=== PATIENT | female | born 1970 | race Caucasian/White ===

== ENCOUNTER 2018-06-06 19:01 | Inpatient (IN) | payer BC ==
[~2018-06-06] VITALS: Ht 157.5 cm; Wt 52.6 kg
--- NOTE | 2018-06-06 19:15 | NUR ---
TO BED 10 AMBULATORY C/O NAUSEA/VOMITING X2 DAYS. PT AAOX4 NO ACUTE DISTRESS NOTED, RESP EVEN AND UNLABORED. PLACE PT ON CARDIAC MONITORING, CONTINUOUS POX. ER MD AT BEDSIDE TO EVAL PT WITH ORDERS RECEIVED. WILL CARRY OUT ORDERS.
[2018-06-06] MEDS ORDERED: ONDANSETRON HCL/PF 4 MG/2 ML VIAL ONE (19:20)
--- NOTE | 2018-06-06 19:20 | NUR ---
STARTED SL 18G TO [facility], BLOOD DRAWN AND SENT TO LAB.
[2018-06-06 19:29] LABS: BASOPHILS # (AUTO) 0.1 /CMM (0.0-0.2); BASOPHILS % (AUTO) 0.4 % (0.0-2.0); HEMATOCRIT 50 % (33-45); HEMOGLOBIN 16.9 g/dL (11.5-14.8); LYMPHOCYTES # (AUTO) 0.5 /CMM (0.8-4.8); LYMPHOCYTES % (AUTO) 2.2 % (20.0-44.0); MEAN CORPUSCULAR HGB CONC 34 g/dl (31.0-36.0); MEAN CORPUSCULAR VOLUME 102 fL (82-100); MONOCYTES # (AUTO) 1.6 /CMM (0.1-1.30); MONOCYTES % (AUTO) 6.7 % (2.0-12.0); NEUTROPHILS # (AUTO) 21.3 /CMM (1.8-8.9); NEUTROPHILS % (AUTO) 90.7 % (43.0-81.0); PLATELET COUNT (AUTO) 198 /CMM (150-450); RED BLOOD CELL COUNT(AUTO) 4.91 MIL/uL (4.0-5.2); WHITE BLOOD COUNT (AUTO) 23.4 K/uL (4.3-11.0)
[2018-06-06] MEDS ORDERED: IV NS 0.9% 1,000 ML BAG IV ONE ×2 (19:30)
[2018-06-06] MEDS ORDERED: ONDANSETRON HCL/PF 4 MG/2 ML VIAL IVP ONE (19:30)
--- NOTE | 2018-06-06 19:31 | NUR ---
PT MEDICATED BY RN PER ER MD ORDER.
[2018-06-06 19:36] LABS: CALCIUM, SERUM 11.2 mg/dL (8.5-10.1); CREATININE 2.2 mg/dL (0.6-1.3); POTASSIUM 4.9 mmol/L (3.5-5.1)
[2018-06-06 19:42] LABS: ALBUMIN 5.9 g/dL (3.4-5.0); BILIRUBIN,DIRECT 0.1 mg/dL (0.0-0.2); BILIRUBIN,TOTAL 0.6 mg/dL (0.2-1.0); TOTAL PROTEIN, SERUM 10.5 g/dL (6.4-8.2)
--- NOTE | 2018-06-06 19:46 | NUR ---
PT TRANSPORTED TO RADIOLOGY FOR CT.
[2018-06-06] MEDS ORDERED: PIPERACILLIN /TAZOBACTAM 3.375 G in IV D5W 50 ML IV ONE (20:00)
[2018-06-06] MEDS ORDERED: PIPERACILLIN /TAZOBACTAM 3.375 G VIAL IV ONE (20:19)
[2018-06-06] MEDS ORDERED: MORPHINE SULFATE INJ 4 MG/ML DISP.SYRIN ONE (21:06)
[2018-06-06] MEDS ORDERED: PANTOPRAZOLE 40 MG VIAL ONE (21:06)
--- NOTE | 2018-06-06 21:13 | NUR ---
PT MEDICATED BY RN PER ER MD ORDER.
[2018-06-06] MEDS ORDERED: PANTOPRAZOLE 40 MG VIAL IV ONE (21:30)
[2018-06-06] MEDS ORDERED: MORPHINE SULFATE INJ 2 MG/ML DISP.SYRIN IV ONE (21:30)
[2018-06-06 21:59] LABS: APPEARANCE,URINE Cloudy (CLEAR); BILIRUBIN,URINE LARGE (NEGATIVE); BLOOD, URINE Moderate Ery/uL (NEGATIVE); COLOR,URINE Yellow (YELLOW); KETONES,URINE 80 (NEGATIVE); LEUKOCYTE ESTERASE ,URINE Negative (NEGATIVE); NITRITE, URINE Negative (NEGATIVE); PH,URINE 5.5 (5.0-8.0); PROTEIN,URINE >=300 mg/dl (NEGATIVE); UGLUCOSE Negative (NEGATIVE); UROBILINOGEN,URINE 0.2 EU/dL (0.2)
--- NOTE | 2018-06-06 22:06 | NUR ---
BED ASSIGNMENT 208-2
[2018-06-06 22:14] LABS: BACTERIA,URINE None seen /HPF (None Seen); SQUAMOUS EPITHELIAL CELL,UR Few /HPF (None Seen); WBC,URINE 0-2 /HPF (0-3)
--- NOTE | 2018-06-06 22:28 | NUR ---
REPORT CALLED TO M/S SUREKHA SCHUSTER.
--- NOTE | 2018-06-06 22:45 | NUR ---
PT WANTS TO HOLD OFF ADMISSION AND WANTS TO THINK ABOUT TRANSFER TO ANOTHER HOSPITAL DUE TO INSURANCE CO-PAY. PENDING ADMISSION.
--- NOTE | 2018-06-06 23:36 | NUR ---
PT STILL UNABLE TO DECIDE AT THIS TIME AND REQUESTING MORE TIME TO THINK ABOUT IT.
[2018-06-07] MEDS ORDERED: ONDANSETRON HCL/PF 4 MG/2 ML VIAL ONE (00:25)
[2018-06-07] MEDS ORDERED: MORPHINE SULFATE INJ 2 MG/ML DISP.SYRIN ONE (00:26)
[2018-06-07] MEDS ORDERED: ONDANSETRON HCL/PF 4 MG/2 ML VIAL IV ONE (00:30)
[2018-06-07] MEDS ORDERED: MORPHINE SULFATE INJ 2 MG/ML DISP.SYRIN IV ONE (00:30)
--- NOTE | 2018-06-07 00:51 | NUR ---
NOW PT AGREED TO HOSPITAL ADMISSION. WILL TRANSPORT PT TO M/S
--- NOTE | 2018-06-07 01:30 | NUR ---
RECEIVED PATIENT FROM ER FOR DX PANCREATITIS AND ETOH WITHDRAWAL. AO X 3, ABLE TO MAKE NEEDS KNOWN. NO ACUTE DISTRESS NOTED. MONITORED FOR PAIN. IV SITE PATENT, INTACT; FLUSHED. SKIN INTACT. SAFETY REMINDERS GIVEN. ON LOW BED WITH BILATERAL UPPER SIDE RAILS UP. CALL SKINNER WITHIN EASY REACH. WILL CONTINUE TO MONITOR.
[2018-06-07] MEDS ORDERED: Z GUARD REMEDY 2 OZ OINT TP PRN (02:00)
[2018-06-07] MEDS ORDERED: THIAMINE HCL 100 MG TABLET PO ONE ×2 (02:00→04:30)
[2018-06-07] MEDS ORDERED: LORAZEPAM INJ 2 MG/ML VIAL IV PRN (02:00)
[2018-06-07] MEDS ORDERED: ZOLPIDEM TARTRATE 5 MG TABLET PO PRN (02:00)
[2018-06-07] MEDS ORDERED: ACETAMINOPHEN 325 MG TABLET PO PRN (02:00)
[2018-06-07] MEDS ORDERED: MEROPENEM 500 MG in IV NS 0.9% 50 ML IV SCH (02:00)
[2018-06-07] MEDS ORDERED: ONDANSETRON HCL/PF 4 MG/2 ML VIAL IVP PRN (02:00)
[2018-06-07 02:18] LABS: MAGNESIUM 3.2 mg/dL (1.8-2.4); PHOSPHORUS 2.2 mg/dL (2.5-4.9)
[2018-06-07] MEDS: IV NS 0.9% 1,000 ML IV PRN ×3 (02:20→21:04)
[2018-06-07] MEDS ORDERED: MEROPENEM 500 MG VIAL IV ONE (03:58)
[2018-06-07] MEDS: MEROPENEM 500 MG in IV NS 0.9% 50 ML IV SCH ×2 (04:11→16:10)
[2018-06-07] MEDS: MORPHINE SULFATE INJ 2 MG/ML DISP.SYRIN IV PRN ×4 (04:24→21:19)
--- NOTE | 2018-06-07 06:30 | NUR ---
PATIENT AWAKE. RESPIRATIONS EVEN. NO SIGNS OF PAIN NOTED. DUE MEDS GIVEN WITH NO ASE NOTED. IVF INFUSING ORDERED. NEEDS ATTENDED. SAFETY PRECAUTIONS AND COMFORT MEASURES IN PLACE. WILL GIVE REPORT TO DAY SHIFT FOR CONTINUITY OF CARE.
--- NOTE | 2018-06-07 07:00 | NUR ---
MS RN NOTES PATIENT IN BED ALERT ORIENTED X 4. NO ACUTE DISTRESS NOTED. BREATHING UNLABORED. NO SOB NOTED. IV ACCESS PATENT AND INTACT, NO REDNESS OR SWELLING NOTED. SAFETY MEASURES IN PLACE. CALL LIGHT WITHIN REACH. WILL CONTINUE TO MONITOR ACCORDINGLY.
[2018-06-07 08:00] VITALS: BP 140/88
[2018-06-07] MEDS ORDERED: VORT10TA PO (08:00)
[2018-06-07] MEDS ORDERED: TRAZ-214 PO (08:00)
[2018-06-07] MEDS ORDERED: DIAZ10TA4 PO (08:00)
[2018-06-07] MEDS ORDERED: ALPR1TAB7 PO (08:00)
[2018-06-07] MEDS ORDERED: LEVO75TA7 PO (08:00)
[2018-06-07] MEDS ORDERED: ZOLP10TA6 PO (08:00)
[2018-06-07] MEDS: FOLIC ACID 1 MG TABLET PO SCH (08:51)
[2018-06-07] MEDS: MULTIVITAMINS,THERAGRAN 1 UDTAB TABLET PO SCH (08:51)
[2018-06-07] MEDS: THIAMINE HCL 100 MG TABLET PO SCH (08:51)
--- NOTE | 2018-06-07 13:16 | NUR ---
Social service consult requested for ETOH abuse. Pt. is a 47 year old female who was admitted to [facility] for pancreatitis and alcohol withdrawal. SW met with pt. bedside. Pt. was sitting up in her bed. Pt. is engaged and fully alert during consultation. Pt. is oriented x 4. Pt. states that she lives at [address] [place] [address]. [address]. [place] [phone]. Her cell phone number is . Pt.s emergency contact is her sister Loulou Collins at . 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 SW inquired with pt. regarding her alcohol use. Pt. stated that she started drinking in January 2018 due to the loss of her mother. Pt. states that she drinks 4-5 vodka drinks per day. SW informed pt. of alcohol treatment program options, but pt. declined, stating, I have my own resources already. Pt. did not provide specifics regarding resources. Pt. was open to receiving additional referrals from SW. Pt. also shared that the passing of her mother triggered symptoms of depression. Pt. states that she is under the mental health care of a psychiatrist and is compliant with care. Pt. denies suicidal ideation at this time. Pt. inquired about grief support resources, and SW provided the following referrals: [facility] x [phone]. [facility] ([phone]. material requirements worker provide the following additional alcohol treatment program referrals: [facility], [address] [facility] [address], [facility], [address] [facility], [facility] [address], and [facility], [address] [place], [address]. in case pt. is in need of more treatment options. No other services needed at this time. SW is available if needed.
[2018-06-07 16:00] VITALS: BP 136/82
--- NOTE | 2018-06-07 19:00 | NUR ---
MS RN NOTES PATIENT IN BED ALERT ORIENTED X 4. NO ACUTE DISTRESS NOTED. BREATHING UNLABORED. NO SOB NOTED. IV ACCESS PATENT AND INTACT, NO REDNESS OR SWELLING NOTED.DUE MEDICATIONS GIVEN, NO ASE NOTED. NEEDS ATTENDED AND ANTICIPATED. KEPT CLEAN DRY AND COMFORTABLE. SAFETY MEASURES IN PLACE. CALL LIGHT WITHIN REACH. ENDORSED TO NIGHT NURSE FOR CONTINUITY OF CARE.
--- NOTE | 2018-06-07 19:40 | NUR ---
RN INITIAL NOTES: RECEIVED REPORT FARHAD LOYA RN. PT IN BED, AWAKE, MET WITH FAMILY AT BED SIDE. PT DENIES ANY SOB, RESPIRATION EVEN AND UNLABORED. IV ACCESS PATENT AND FLUSHING WELL, INFUSING WITH NS AT 125 ML/HR, NO S/S OF INFILTRATION OR SWELLING NOTED. DISCUSSED PLAN OF CARE TO THE PT, ALL QUESTIONS ANSWERED. SAFETY PRECAUTIONS FOR FALL INITIATED, CALL LIGHT IN REACH, WILL CONTINUE MONITORING PT.
[2018-06-07 20:00] VITALS: BP 130/90
--- NOTE | 2018-06-07 21:19 | NUR ---
PRN MORPHINE: PT C/O 09/21 MID BACK PAIN REQUESTING FOR MORPHINE, PRN MORPHINE 2 MG IVP ADMINISTERED AT THIS TIME, WILL CONTINUE TO MONITOR AND REASSESS PT Addendum: 06/07/18 at 2124 by MARIJA NASSAR RN CORRECTION OF ENTRY: PRN MORPHINE: PT C/O 09/21 MID BACK PAIN REQUESTING FOR MORPHINE, PRN MORPHINE 4 MG IVP ADMINISTERED AT THIS TIME, WILL CONTINUE TO MONITOR AND REASSESS PT
--- NOTE | 2018-06-07 22:50 | NUR ---
RN NOTES: COLLECTED UA SPECIMEN FOR DRUG SCREEN, CONTACTED LAB FOR TREE EXPERT
--- NOTE | 2018-06-07 23:00 | NUR ---
RN NOTES: PT COMPLAINED SHE FEELS LIKE HER IV IS LEAKING, CHECKED IV ACCESS, NO LEAKING NOTED, ABLE TO FLUSH WITH GOOD BLOOD RETURN, INFORMED PT THAT IF SHE'S NOT COMFORTABLE AND STILL BOTHERED WITH HER IV, I CAN ALWAYS CHANGED THE ACCESS SITE, BUT PT REFUSED STATED SHE DOESNT WANT IT SHE WILL LEAVE TOMORROW AM, EDUCATION PROVIDED TO THE PT,
--- NOTE | 2018-06-08 01:22 | NUR ---
PRN MORPHINE: PT C/O MID UPPER BACK PAIN REQUESTING FOR HER MORPHINE, PRN MORPHINE 4MG IVP ADMINISTERED AT THIS TIME, WILL CONTINUE TO MONITOR AND REASSESS PT
[2018-06-08] MEDS ORDERED: MORPHINE SULFATE INJ 4 MG/ML DISP.SYRIN IV PRN (01:30)
[2018-06-08] MEDS: MEROPENEM 500 MG in IV NS 0.9% 50 ML IV SCH (03:33)
--- NOTE | 2018-06-08 04:53 | NUR ---
rn notes: noted iv access leaking, removed and applied pressured dressing. pt refused to insert new iv at this time, stated after materials tech draw blood in am. informed pt about importance of iv access darling in case of emergency but pt restated and firmed to have it inserted after blood draw
--- NOTE | 2018-06-08 06:55 | NUR ---
RN NOTES: TRIED INSERTING IV USING ACCU VEIN BUT PT'S VEIN BLEW RIGHT AWAY, PT REFUSED TO START ANOTHER IV, SHE PREFERS TO DO IT AFTER BREAKFAST, RN MAURO WITNESS. PT HAS NO IV ACCESS AT THIS TIME.
--- NOTE | 2018-06-08 06:56 | NUR ---
RN CLOSING NOTES: PT IN BED, AWAKE, A/O X3 ON RA DENIES ANY SOB, NO IV ACCESS AT THIS TIME SHE PREFERS TO HAVE IT INSERTED AFTER BREAKFAST AND LAB DRAW, BENCH WORKER HELPER WILL COME BACK AFTER BREAKFAST FOR ANOTHER BLOOD DRAW (FIRST DRAW UNSUCCESSFUL). VS REMAINS STABLE, NEEDS ATTENDED. SAFETY PRECAUTIONS FOR FALL REMAINS ENGAGED, CALL LIGHT IN REACH, WILL ENDORSE TO DAY RN FOR CONTINUITY OF CARE.
--- NOTE | 2018-06-08 07:06 | NUR ---
MS RN NOTES PATIENT IN BED ALERT ORIENTED X 4. NO ACUTE DISTRESS NOTED. BREATHING UNLABORED. NO SOB NOTED. NO IV ACCESS AT THIS TIME, REFUSED TO START NEW LINE, WILL OFFER AGAIN. NO REDNESS, NO SWELLING NOTED ON OLD IV SITE. SAFETY MEASURES IN PLACE. CALL LIGHT WITHIN REACH. WILL CONTINUE TO MONITOR ACCORDINGLY.
[2018-06-08 07:11] LABS: BASOPHILS % (AUTO) 0.3 % (0.0-2.0); EOSINOPHILS % (AUTO) 0.3 % (0.0-6.0); HEMATOCRIT 34 % (33-45); HEMOGLOBIN 11.5 g/dL (11.5-14.8); LYMPHOCYTES # (AUTO) 2.2 /CMM (0.8-4.8); LYMPHOCYTES % (AUTO) 18.8 % (20.0-44.0); MEAN CORPUSCULAR HGB CONC 34 g/dl (31.0-36.0); MEAN CORPUSCULAR VOLUME 101 fL (82-100); MONOCYTES # (AUTO) 0.7 /CMM (0.1-1.30); MONOCYTES % (AUTO) 6.3 % (2.0-12.0); NEUTROPHILS # (AUTO) 8.5 /CMM (1.8-8.9); NEUTROPHILS % (AUTO) 74.3 % (43.0-81.0); PLATELET COUNT (AUTO) 123 /CMM (150-450); RED BLOOD CELL COUNT(AUTO) 3.34 MIL/uL (4.0-5.2); WHITE BLOOD COUNT (AUTO) 11.5 K/uL (4.3-11.0)
[2018-06-08 07:26] LABS: ALBUMIN 3.9 g/dL (3.4-5.0); BILIRUBIN,TOTAL 0.7 mg/dL (0.2-1.0); CALCIUM, SERUM 9.4 mg/dL (8.5-10.1); CREATININE 0.6 mg/dL (0.6-1.3); MAGNESIUM 1.9 mg/dL (1.8-2.4); PHOSPHORUS 1.4 mg/dL (2.5-4.9); POTASSIUM 3.2 mmol/L (3.5-5.1); TOTAL PROTEIN, SERUM 6.9 g/dL (6.4-8.2)
[2018-06-08 08:07] VITALS: BP 149/92
[2018-06-08] MEDS: MULTIVITAMINS,THERAGRAN 1 UDTAB TABLET PO SCH (08:14)
[2018-06-08] MEDS: THIAMINE HCL 100 MG TABLET PO SCH (08:14)
[2018-06-08] MEDS: FOLIC ACID 1 MG TABLET PO SCH (08:14)
[2018-06-08 08:58] LABS: THYROID STIMULATING HORMONE 4.534 uIU/mL (0.358-3.74)
[2018-06-08] MEDS ORDERED: Potassium Chloride 40 MEQ in IV NS 0.9% 1,000 ML IV PRN (09:08)
--- NOTE | 2018-06-08 09:23 | NUR ---
MS RN NOTES SEEN AND EVALUATED BY DEANDRE ESPINOZA WITH ORDERS TO CHANGE DIET TO REGULAR, NOTED AND CARRIED OUT.
[2018-06-08] MEDS ORDERED: POTASSIUM CHLORIDE 20 MEQ TAB.PRT.SR PO ONE (09:30)
--- NOTE | 2018-06-08 09:30 | NUR ---
MS RN NOTES PATIENT REFUSED TO START NEW IV LINE AND REFUSED POTASSIUM CHLORIDE 40 MEQ IN IV 0.9% NS 1000ML DESPITE OF EXPLANATION OF RISK AND BENEFITS, DEANDRE ESPINOZA NOTIFIED WITH NO NEW ORDERS MADE AT THIS TIME. DR YULISA RANKIN NOTIFIED. PATIENT REQUESTING TO SPEAK WITH DR YULISA RANKIN, NOTIFIED DR YULISA RANKIN, SAID MD WILL SEE PATIENT. PATIENT MADE AWARE THAT SHE WILL BE SEEN BY DR YULISA RANKIN.
--- NOTE | 2018-06-08 10:30 | NUR ---
MS RN NOTES FOLLOWED UP WITH DR YULISA RANKIN REGARDING PATIENT WANTS TO HIM.
[2018-06-08] MEDS ORDERED: NEUTRA PHOS 1 POWD.PACKET PO ONE (11:00)
--- NOTE | 2018-06-08 11:25 | NUR ---
MS RN NOTES RECEIVED NEW ORDERS FROM DR YULISA RANKIN FOR DISCHARGE. PATIENT REQUESTED CD OF XRAY AND CT, NOTIFIED DR YULISA RANKIN WITH ORDERS TO GIVE UPON DISCHARGE. NOTED AND CARRIED OUT.
--- NOTE | 2018-06-08 13:15 | NUR ---
MS RN NOTES PATIENT DISCHARGE HOME WITH STABLE VITAL SIGNS, NO ACUTE DISTRESS NOTED, BREATHING UNLABORED. NO SOB NOTED. DENIED ANY PAIN AT THIS TIME. DISCHARGE INSTRUCTIONS GIVEN TO THE PATIENT INCLUDING FOLLOW UP WITH PRIMARY DOCTOR, AND XRAY,CT CD, VERBALIZED UNDERSTANDING. ALL BELONGINGS ACCOUNTED FOR. SKIN IS INTACT. OLD IV ACCESS NO REDNESS, NO SWELLING NOTED. PATIENT ALERT ORIENTED X 4, AMBULATORY WITH STEADY GAIT. ASSISTED TO THE LOBBY, PICKED UP VIA PRIVATE CAR BY SISTER IN STABLE CONDITION.
[2018-06-10 11:08] LABS: *SPE A/G RATIO 1.6 (0.7-1.7); *SPE ALBUMIN 4.2 g/dL (2.9-4.4); *SPE ALPHA-1-GLOBULIN 0.2 g/dL (0.0-0.4); *SPE ALPHA-2-GLOBULIN 0.7 g/dL (0.4-1.0); *SPE GLOBULIN, TOTAL 2.7 g/dL (2.2-3.9); *SPE M-SPIKE Not Observed g/dL (Not Observed); *SPEGAMMA GLOBULIN 0.7 g/dL (0.4-1.8)
== END 2018-06-08 13:15 | disposition home or self-care (01) | DRG 438 ==
LOC: ER 19:04 → MEDSG2 06-07 01:03
PROVIDERS: ADMIT Nurse Practitioner Acute Care; ATTEND Hospitalist
DX: K85.90 Acute pancreatitis without necrosis or infection, unspecified (principal); N17.0 Acute kidney failure with tubular necrosis; F10.239 Alcohol dependence with withdrawal, unspecified; E87.2 Acidosis; E87.1 Hypo-osmolality and hyponatremia; Y90.9 Presence of alcohol in blood, level not specified; E83.52 Hypercalcemia; E86.0 Dehydration; G43.909 Migraine, unspecified, not intractable, without status migrainosus; F41.9 Anxiety disorder, unspecified; E87.6 Hypokalemia; I34.1 Nonrheumatic mitral (valve) prolapse; D72.829 Elevated white blood cell count, unspecified; K75.81 Nonalcoholic steatohepatitis (NASH); K57.30 Diverticulosis of large intestine without perforation or abscess without bleeding; K80.20 Calculus of gallbladder without cholecystitis without obstruction; E07.9 Disorder of thyroid, unspecified
CPT/HCPCS: 36415; 71045-TC; 80048-TC; 80053-TC; 80061-TC; 80076-TC; 80305; 81000-TC; 82962-TC; 83690-TC; 83735-TC; 84100-TC; 84155; 84165; 84443-TC; 84703-TC; 85025-TC; 87081-TC; 93307-TC; A4216; C9113; G0378; J2185; J2270; J2405; J2543; J3480; J7030; J7060